=== PATIENT | female | born 1955 | race Caucasian/White ===

== ENCOUNTER 2024-10-05 23:32 | Inpatient (IN) | payer MEDICARE, BC ==
[2024-10-06 00:17] LABS: HEMATOCRIT 37.8 % (33.0-47.0); HEMOGLOBIN 13.1 g/dL (12.0-16.0); MEAN CORPUSCULAR HEMOGLOBIN 31.5 pg (26.0-32.0); MEAN CORPUSCULAR HGB CONC 34.7 g/dL (32.0-36.0); MEAN CORPUSCULAR VOLUME 90.9 fL (78.0-93.0); PLATELET COUNT,PLT 217 x10^3/uL (130-400); RED BLOOD CELL COUNT 4.16 x10^6/uL (4.00-5.50); WHITE BLOOD CELL COUNT,WBC 7.2 x10^3/uL (4.0-10.0)
[2024-10-06 00:26] LABS: BAND PERCENT MAN 1 % (0-6); LYMPHOCYTES ABSOLUTE MAN 1.4 x10^3/uL (1.0-4.8); LYMPHOCYTES PERCENT MAN 20 % (25-50); MONOCYTES ABSOLUTE MAN 0.7 x10^3/uL (0.0-0.8); MONOCYTES PERCENT MAN 10 % (2-11); PLATELET COUNT ESTIMATE ADEQUATE; SEG NEUTROPHILS PERCENT MAN 69 % (50-80)
[2024-10-06 00:39] LABS: A/G RATIO 0.84; ALBUMIN 3.2 g/dL (3.4-5.0); BILIRUBIN TOTAL 0.5 mg/dL (0.2-1.0); CALCIUM 8.9 mg/dL (8.5-10.1); EST CRCL DRUG DOSING (CG) 37.06 mL/min; POTASSIUM,K 3.6 mmol/L (3.5-5.1)
[2024-10-06 00:47] LABS: ANION GAP 10.6 mmol/L (5-15)
[2024-10-06] MEDS: Furosemide 40 MG/4 ML VIAL IV ONE (01:47)
[2024-10-06 01:48] LABS: BILIRUBIN,URINE NEGATIVE (NEGATIVE); COLOR,URINE YELLOW (YELLOW); GLUCOSE,URINE NEGATIVE (NEGATIVE); KETONES,URINE NEGATIVE (NEGATIVE); LEUKOCYTE ESTERASE,URINE NEGATIVE (NEGATIVE); NITRITE,URINE NEGATIVE (NEGATIVE); OCCULT BLOOD,URINE MODERATE (NEGATIVE); PROTEIN,URINE 30 mg/dL (NEGATIVE); UROBILINOGEN,URINE 0.2 EU/dL (0.2)
[2024-10-06 01:55] LABS: APPEARANCE,URINE CLEAR (CLEAR); BACTERIA,URINE RARE /HPF (NOT SEEN); MUCUS,URINE RARE /LPF (NOT SEEN); WBC,URINE NOT SEEN /HPF (NOT SEEN)
[2024-10-06] MEDS: Albuterol/Ipratropium 3.0-0.5 MG/3 ML Neb Soln NEB ONE (02:50)
[2024-10-06] MEDS ORDERED: guaiFENesin/Dextromethorphan 100-10 MG/5 ML Soln 10 ML Cup PO PRN (05:37)
[2024-10-06] MEDS ORDERED: RIZATRIPTAN BENZOATE 10 MG PO PRN (05:56)
[2024-10-06] MEDS ORDERED: Non-Formulary Medication 1 Each (Albuterol Sulfate [Proair Digihaler] 90 MCG Aer.Pw.Bas) IH PRN (05:56)
[2024-10-06] MEDS ORDERED: Acetaminophen 325 MG Tab PO PRN (05:56)
[2024-10-06] MEDS ORDERED: Nystatin Crm 30 GM Tube TOP PRN (05:56)
[2024-10-06] MEDS: Furosemide 40 MG/4 ML VIAL IVPUSH ONE ×2 (06:47→13:10)
[2024-10-06] MEDS: Levothyroxine 88 MCG Tab PO SCH (06:47)
[2024-10-06 06:54] LABS: BASOPHILS PERCENT AUTO 0.3 % (0.2-1.2); EOSINOPHILS PERCENT AUTO 0.1 % (0.0-4.0); HEMATOCRIT 38.5 % (33.0-47.0); HEMOGLOBIN 13.5 g/dL (12.0-16.0); IMMATURE GRAN ABSOLUTE AUTO 0.03 x10^3/uL (0.00-0.07); LYMPHOCYTES ABSOLUTE AUTO 1.3 x10^3/uL (1.0-4.8); LYMPHOCYTES PERCENT AUTO 17.3 % (25.0-50.0); MEAN CORPUSCULAR HGB CONC 35.1 g/dL (32.0-36.0); MEAN CORPUSCULAR VOLUME 88.5 fL (78.0-93.0); MONOCYTES ABSOLUTE AUTO 0.7 x10^3/uL (0.0-0.8); MONOCYTES PERCENT AUTO 9.5 % (2.0-11.0); NEUTROPHILS ABSOLUTE AUTO 5.2 x10^3/uL (1.8-7.7); NEUTROPHILS PERCENT AUTO 72.4 % (50.0-80.0); PLATELET COUNT,PLT 246 x10^3/uL (130-400); RED BLOOD CELL COUNT 4.35 x10^6/uL (4.00-5.50); WHITE BLOOD CELL COUNT,WBC 7.2 x10^3/uL (4.0-10.0)
[2024-10-06 07:16] LABS: INR 1.8 (0.9-1.1); PROTHROMBIN TIME 19.2 SEC (9.6-12.0)
[2024-10-06 07:20] LABS: A/G RATIO 0.89; ALBUMIN 3.4 g/dL (3.4-5.0); BILIRUBIN TOTAL 0.7 mg/dL (0.2-1.0); CREATININE 0.9 mg/dL (0.55-1.02); EST CRCL DRUG DOSING (CG) 41.18 mL/min; PROTEIN TOTAL,TP 7.2 g/dL (6.4-8.2)
[2024-10-06] MEDS: Acetaminophen/HYDROcodone 325-10 MG Tab PO PRN (07:46)
[2024-10-06] MEDS: Ondansetron 4 MG/2 ML SDV IV PRN (07:46)
[2024-10-06] MEDS ORDERED: Enoxaparin 40 MG/0.4 ML Syringe SUBCUT SCH (09:00)
[2024-10-06] MEDS: Cyanocobalamin (Vitamin B12) 1,000 MCG Tab PO SCH (09:08)
[2024-10-06] MEDS: Cholecalciferol (Vitamin D3) 25 MCG Tab PO SCH (09:08)
[2024-10-06] MEDS: Warfarin 5 MG, Warfarin 2.5 MG PO ONE (09:08)
[2024-10-06] MEDS: Enoxaparin 120 MG/0.8 ML Syringe SUBCUT ONE (09:08)
[2024-10-06] MEDS: Metoprolol Tartrate 50 MG Tab PO SCH (09:09)
[2024-10-06] MEDS: busPIRone 5 MG Tab PO SCH (09:09)
[2024-10-06] MEDS: Miconazole 2% Top Powder 45 GM Container TOP SCH (09:10)
[2024-10-06] MEDS: Fluticasone Propionate Nasal Spray 9.9 ML BOTTLE NASBOTH SCH (09:10)
[2024-10-06] MEDS: Loratadine 10 MG Tab PO SCH (09:10)
[2024-10-06] MEDS: Albuterol/Ipratropium 3.0-0.5 MG/3 ML Neb Soln NEB PRN (12:01)
[2024-10-06] MEDS: Potassium Chloride 20 MEQ Tab.ER PO SCH (13:11)
[2024-10-06] MEDS: methylPREDNISolone Sodium Succinate 125 MG/2 ML SDV IVPUSH ONE (13:13)
[2024-10-06] MEDS: Metoclopramide 5 MG Tab PO PRN (17:50)
[2024-10-06] MEDS: Baclofen 10 MG Tab PO SCH (20:21)
[2024-10-06] MEDS: Amitriptyline 25 MG Tab PO SCH (20:25)
[2024-10-07] MEDS: Loperamide 2 MG Cap PO PRN (04:20)
[2024-10-07 07:03] LABS: BASOPHILS PERCENT AUTO 0.2 % (0.2-1.2); EOSINOPHILS PERCENT AUTO 0.2 % (0.0-4.0); HEMATOCRIT 41.6 % (33.0-47.0); HEMOGLOBIN 14.3 g/dL (12.0-16.0); IMMATURE GRAN ABSOLUTE AUTO 0.02 x10^3/uL (0.00-0.07); LYMPHOCYTES ABSOLUTE AUTO 1.1 x10^3/uL (1.0-4.8); LYMPHOCYTES PERCENT AUTO 19.8 % (25.0-50.0); MEAN CORPUSCULAR HEMOGLOBIN 30.3 pg (26.0-32.0); MEAN CORPUSCULAR HGB CONC 34.4 g/dL (32.0-36.0); MEAN CORPUSCULAR VOLUME 88.1 fL (78.0-93.0); MONOCYTES ABSOLUTE AUTO 0.4 x10^3/uL (0.0-0.8); MONOCYTES PERCENT AUTO 8.1 % (2.0-11.0); NEUTROPHILS ABSOLUTE AUTO 3.8 x10^3/uL (1.8-7.7); NEUTROPHILS PERCENT AUTO 71.3 % (50.0-80.0); PLATELET COUNT,PLT 332 x10^3/uL (130-400); RED BLOOD CELL COUNT 4.72 x10^6/uL (4.00-5.50); WHITE BLOOD CELL COUNT,WBC 5.3 x10^3/uL (4.0-10.0)
[2024-10-07 07:16] LABS: INR 1.9 (0.9-1.1); PROTHROMBIN TIME 19.7 SEC (9.6-12.0)
[2024-10-07 07:24] LABS: A/G RATIO 0.83; ALBUMIN 3.5 g/dL (3.4-5.0); BILIRUBIN TOTAL 0.8 mg/dL (0.2-1.0); CALCIUM 9.5 mg/dL (8.5-10.1); CREATININE 1.1 mg/dL (0.55-1.02); EST CRCL DRUG DOSING (CG) 33.69 mL/min; POTASSIUM,K 4.3 mmol/L (3.5-5.1); PROTEIN TOTAL,TP 7.7 g/dL (6.4-8.2)
[2024-10-07 07:25] LABS: ANION GAP 12.3 mmol/L (5-15)
[2024-10-07] MEDS: Warfarin 5 MG Tab PO ONE (10:20)
[2024-10-07] MEDS: Enoxaparin 120 MG/0.8 ML Syringe SUBCUT ONE (10:22)
[2024-10-07] MEDS: methylPREDNISolone Sodium Succinate 40 MG/1 ML SDV IVPUSH SCH (11:50)
[2024-10-07] MEDS: Acetaminophen 325 MG Tab PO PRN (12:19)
[2024-10-07] MEDS: Furosemide 40 MG/4 ML VIAL IV SCH (14:30)
[2024-10-07] MEDS: Sodium Chloride 0.9% 10 ML Syringe FLUSH PRN (18:22)
[2024-10-08 05:07] LABS: BORDETELLA PARAPERT IS1001 Not Detected (Not Detected)
[2024-10-08 06:53] LABS: EOSINOPHILS ABSOLUTE AUTO 0.1 x10^3/uL (0.0-0.5); EOSINOPHILS PERCENT AUTO 0.5 % (0.0-4.0); HEMATOCRIT 42.1 % (33.0-47.0); HEMOGLOBIN 14.6 g/dL (12.0-16.0); IMMATURE GRAN ABSOLUTE AUTO 0.05 x10^3/uL (0.00-0.07); LYMPHOCYTES ABSOLUTE AUTO 1.3 x10^3/uL (1.0-4.8); LYMPHOCYTES PERCENT AUTO 13.6 % (25.0-50.0); MEAN CORPUSCULAR HEMOGLOBIN 30.7 pg (26.0-32.0); MEAN CORPUSCULAR HGB CONC 34.7 g/dL (32.0-36.0); MEAN CORPUSCULAR VOLUME 88.6 fL (78.0-93.0); MONOCYTES ABSOLUTE AUTO 0.7 x10^3/uL (0.0-0.8); NEUTROPHILS ABSOLUTE AUTO 7.5 x10^3/uL (1.8-7.7); NEUTROPHILS PERCENT AUTO 78.4 % (50.0-80.0); PLATELET COUNT,PLT 411 x10^3/uL (130-400); RED BLOOD CELL COUNT 4.75 x10^6/uL (4.00-5.50); WHITE BLOOD CELL COUNT,WBC 9.6 x10^3/uL (4.0-10.0)
[2024-10-08 07:08] LABS: INR 2.4 (0.9-1.1); PROTHROMBIN TIME 25.2 SEC (9.6-12.0)
[2024-10-08 07:14] LABS: A/G RATIO 0.8; ALBUMIN 3.6 g/dL (3.4-5.0); BILIRUBIN TOTAL 0.8 mg/dL (0.2-1.0); CALCIUM 9.7 mg/dL (8.5-10.1); CREATININE 1.2 mg/dL (0.55-1.02); EST CRCL DRUG DOSING (CG) 30.89 mL/min; POTASSIUM,K 3.8 mmol/L (3.5-5.1); PROTEIN TOTAL,TP 8.1 g/dL (6.4-8.2)
[2024-10-08 07:15] LABS: ANION GAP 13.8 mmol/L (5-15)
[2024-10-08] MEDS: hydrALAZINE 20 MG/ML SDV IVPUSH ONE (10:25)
[2024-10-08] MEDS: Metoprolol Tartrate 50 MG Tab PO ONE (10:27)
[2024-10-08] MEDS: Magnesium Oxide 400 MG Tab PO SCH (10:30)
[2024-10-08] MEDS: Spironolactone 25 MG Tab PO SCH (10:33)
[2024-10-08] MEDS: Torsemide 20 MG Tab PO SCH (14:51)
[2024-10-08] MEDS: Warfarin 2.5 MG Tab PO SCH (20:20)
[2024-10-08] MEDS: Metoprolol Tartrate 50 MG Tab PO SCH (20:22)
[2024-10-09] MEDS ORDERED: hydrALAZINE 20 MG/ML SDV IVPUSH PRN (00:30)
[2024-10-09 07:08] LABS: EOSINOPHILS PERCENT AUTO 0.1 % (0.0-4.0); HEMATOCRIT 39.9 % (33.0-47.0); HEMOGLOBIN 13.8 g/dL (12.0-16.0); IMMATURE GRAN ABSOLUTE AUTO 0.08 x10^3/uL (0.00-0.07); LYMPHOCYTES ABSOLUTE AUTO 1.2 x10^3/uL (1.0-4.8); LYMPHOCYTES PERCENT AUTO 13.6 % (25.0-50.0); MEAN CORPUSCULAR HEMOGLOBIN 30.5 pg (26.0-32.0); MEAN CORPUSCULAR HGB CONC 34.6 g/dL (32.0-36.0); MEAN CORPUSCULAR VOLUME 88.3 fL (78.0-93.0); MONOCYTES ABSOLUTE AUTO 1.2 x10^3/uL (0.0-0.8); MONOCYTES PERCENT AUTO 13.6 % (2.0-11.0); NEUTROPHILS ABSOLUTE AUTO 6.4 x10^3/uL (1.8-7.7); NEUTROPHILS PERCENT AUTO 71.8 % (50.0-80.0); PLATELET COUNT,PLT 321 x10^3/uL (130-400); RED BLOOD CELL COUNT 4.52 x10^6/uL (4.00-5.50)
[2024-10-09 07:20] LABS: INR 3.6 (0.9-1.1); PROTHROMBIN TIME 36.5 SEC (9.6-12.0)
[2024-10-09 07:29] LABS: A/G RATIO 0.85; ALBUMIN 3.3 g/dL (3.4-5.0); BILIRUBIN TOTAL 0.9 mg/dL (0.2-1.0); CREATININE 1.1 mg/dL (0.55-1.02); EST CRCL DRUG DOSING (CG) 33.69 mL/min; POTASSIUM,K 3.6 mmol/L (3.5-5.1); PROTEIN TOTAL,TP 7.2 g/dL (6.4-8.2)
[2024-10-09 07:37] LABS: ANION GAP 11.6 mmol/L (5-15)
[2024-10-09] MEDS: Arformoterol 15 MCG/2 ML Neb Soln NEB SCH (09:37)
[2024-10-09] MEDS: Budesonide 0.5 MG/2 ML Neb Susp NEB SCH (09:37)
[2024-10-09] MEDS: Albuterol/Ipratropium 3.0-0.5 MG/3 ML Neb Soln NEB SCH (10:12)
[2024-10-09] MEDS: Doxycycline Monohydrate 100 MG Cap PO SCH (10:30)
[2024-10-09] MEDS: predniSONE 20 MG Tab PO SCH (13:30)
[2024-10-09] MEDS: [UNRECOGNIZED DRUG - REMARK] PO ONE (21:12)
[2024-10-10 07:18] LABS: BASOPHILS PERCENT AUTO 0.1 % (0.2-1.2); EOSINOPHILS PERCENT AUTO 0.1 % (0.0-4.0); HEMATOCRIT 40.7 % (33.0-47.0); HEMOGLOBIN 14.4 g/dL (12.0-16.0); IMMATURE GRAN ABSOLUTE AUTO 0.07 x10^3/uL (0.00-0.07); LYMPHOCYTES ABSOLUTE AUTO 1.6 x10^3/uL (1.0-4.8); LYMPHOCYTES PERCENT AUTO 20.1 % (25.0-50.0); MEAN CORPUSCULAR HEMOGLOBIN 30.9 pg (26.0-32.0); MEAN CORPUSCULAR HGB CONC 35.4 g/dL (32.0-36.0); MEAN CORPUSCULAR VOLUME 87.3 fL (78.0-93.0); MONOCYTES ABSOLUTE AUTO 1.2 x10^3/uL (0.0-0.8); MONOCYTES PERCENT AUTO 14.9 % (2.0-11.0); NEUTROPHILS ABSOLUTE AUTO 4.9 x10^3/uL (1.8-7.7); NEUTROPHILS PERCENT AUTO 63.9 % (50.0-80.0); PLATELET COUNT,PLT 377 x10^3/uL (130-400); RED BLOOD CELL COUNT 4.66 x10^6/uL (4.00-5.50); WHITE BLOOD CELL COUNT,WBC 7.7 x10^3/uL (4.0-10.0)
[2024-10-10 07:44] LABS: INR 3.4 (0.9-1.1); PROTHROMBIN TIME 34.4 SEC (9.6-12.0)
[2024-10-10 07:45] LABS: A/G RATIO 0.9; ALBUMIN 3.5 g/dL (3.4-5.0); BILIRUBIN TOTAL 0.8 mg/dL (0.2-1.0); CALCIUM 9.3 mg/dL (8.5-10.1); CREATININE 1.3 mg/dL (0.55-1.02); EST CRCL DRUG DOSING (CG) 28.51 mL/min; POTASSIUM,K 3.3 mmol/L (3.5-5.1); PROTEIN TOTAL,TP 7.4 g/dL (6.4-8.2)
[2024-10-10 07:48] LABS: ANION GAP 16.3 mmol/L (5-15)
[2024-10-10] MEDS ORDERED: Warfarin 5 MG Tab PO SCH (21:00)
[2024-10-11] MEDS ORDERED: Warfarin 2.5 MG Tab PO SCH (21:00)
== END 2024-10-10 16:56 | disposition home or self-care (01) | DRG 291 ==
LOC: VM.ED 23:32 → VM.MS 10-06 03:40
PROVIDERS: ADMIT Internal Medicine; ATTEND Nurse Practitioner Family
DX: I13.0 Hypertensive heart and chronic kidney disease with heart failure and stage 1 through stage 4 chronic kidney disease, or unspecified chronic kidney disease (principal); I50.33 Acute on chronic diastolic (congestive) heart failure; B97.89 Other viral agents as the cause of diseases classified elsewhere; Z68.43 Body mass index [BMI] 50.0-59.9, adult; Z66 Do not resuscitate; J06.9 Acute upper respiratory infection, unspecified; M19.90 Unspecified osteoarthritis, unspecified site; M79.7 Fibromyalgia; E11.65 Type 2 diabetes mellitus with hyperglycemia; E87.6 Hypokalemia; E83.42 Hypomagnesemia; E66.01 Morbid (severe) obesity due to excess calories; I89.0 Lymphedema, not elsewhere classified; E78.5 Hyperlipidemia, unspecified; N18.30 Chronic kidney disease, stage 3 unspecified; F32.A Depression, unspecified; F41.9 Anxiety disorder, unspecified; J44.9 Chronic obstructive pulmonary disease, unspecified; G47.33 Obstructive sleep apnea (adult) (pediatric); E03.9 Hypothyroidism, unspecified; J32.9 Chronic sinusitis, unspecified; J30.9 Allergic rhinitis, unspecified; K58.9 Irritable bowel syndrome, unspecified; I48.91 Unspecified atrial fibrillation; J40 Bronchitis, not specified as acute or chronic; F11.90 Opioid use, unspecified, uncomplicated; Z79.01 Long term (current) use of anticoagulants; Z79.899 Other long term (current) drug therapy; Z95.2 Presence of prosthetic heart valve
CPT/HCPCS: 36415; 71045; 71046; 80053; 81001; 82947; 83735; 83880; 84443; 85025; 85610; 86140; 87428-QW; 87486; 87581; 87633; 87798; 93005; 93010; 94640; 96374; 97110-GP; 97116-GP; 97162-GP; 97166-GO; 97535-GO; 99223; 99284; 99285-25; A9270-GY; J0360; J1650; J1940; J2405; J2919; J3490; J7512; J7620-GY; Q3014